=== PATIENT | male | born 1995 | race Caucasian/White ===

== ENCOUNTER 2024-11-14 12:46 | Emergency (ER) | payer SELFPAY ==
[2024-11-14 12:48] VITALS: BP 155/107
[2024-11-14 13:29] LABS: % Basophils 0.3 % (0-2); % Eosinophils 0.6 % (0-6); % Immature Granulocytes 0.5 % (0-0.5); % Lymphocytes 23.5 % (20.5-51.1); % Monocytes 6.7 % (1.7-9.3); % Neutrophils 68.4 % (42.2-75.2); Absolute Eosinophils 0.1 10^3/uL (0-0.7); Absolute Monocytes 0.6 10^3/uL (0.1-0.6); Hematocrit 48.8 % (39.0-52.0); Hemoglobin 17.2 g/dL (13.0-18.0); Mean Corp Hgb Conc. 35.2 g/dL (33.0-37.0); Mean Corpuscular Hgb 31.8 pg (27.0-31.0); Mean Corpuscular Volume 90.2 fL (80.0-94.0); Mean Platelet Volume 8.4 fL (7.4-10.4); Nucleated Red Blood Cells % 0 % (-); Platelet Count 300 10^3/uL (130-400); Red Blood Cell Count 5.41 10^6/uL (4.70-6.10); Red Cell Dist. Width 11.8 % (11.5-14.5); White Blood Cell Count 8.7 10^3/uL (4.8-10.8)
--- NOTE | 2024-11-14 13:30 | EDRN ---
Pt sat in triage area until his father arrived for personal comfort. Reunited with his father in waiting area at this time.
[2024-11-14 13:39] LABS: ALT (SGPT) 39 U/L (0-50); AST (SGOT) 36 U/L (17-59); Albumin 4.7 g/dl (3.5-5.0); Alkaline Phosphatase 85 U/L (38-126); Blood Urea Nitrogen 12 mg/dl (9-20); Calcium 9.7 mg/dl (8.4-10.2); Carbon Dioxide 22 mmol/L (22-30); Chloride 105 mmol/L (98-107); Glucose 139 mg/dl (70-99); Potassium 3.4 mmol/L (3.5-5.1); Sodium 140 mmol/L (135-145); Total Bilirubin 0.8 mg/dl (0.2-1.3); Total Protein 7.8 g/dl (6.3-8.2); eGFR > 60.00
[2024-11-14 13:51] LABS: Troponin I < 0.012 ng/ml
--- NOTE | 2024-11-14 15:17 | ED.GENMED ---
History of Present Illness
General
Chief Complaint: Anxiety
Source: patient
Exam Limitations: none
Time Seen by Provider: 11/14/24 15:16
Nursing documentation reviewed up to this point in time: agreed with
History of Present Illness
History of Present Illness:
Patient is a 28-year-old male presenting to the emergency department today with concerns of chest tightness and elevated heart rate that began while at work earlier today. Patient states around noon he was sitting at his desk when he started to
feel sudden onset heart racing. He also describes a tightness sensation across his mid chest. He denies any associated shortness of breath, lightheadedness/dizziness, diaphoresis, or back pain.
He states that he started feel very anxious about the symptoms. He then called 911 as he 'did not feel right'.
Patient reports significant history of health anxiety. He reports feeing dizzy when falling asleep on Tuesday, after a day of drinking, and has since been scared to go to sleep in case dizziness returns.
He is not seen by a therapist or on any anxiolytic medications.
Patient has no family or personal hx of cardiac disease.
Past History
Past History
ED Past Medical History: None
ED Past Surgical History: None
Review of Systems
Review of Systems
Allergies reviewed?: Yes
All Other Systems: ROS reviewed and negative except as documented in HPI and ROS
Phy Exam
Physical Exam
Physical Exam:
Vitals: Tachycardic, hypertensive on arrival
General: Patient is anxious appearing
Skin: Warm and dry, no rashes or lesions
Head: Normocephalic, atraumatic
Eyes: Sclera nonicteric. EOMs intact. No nystagmus.
Throat: Protecting airway
Neck: Normal ROM, no cervical spine tenderness, no meningismus
Cardiac: Regular rate and rhythm, no murmurs. No reproducible chest wall tenderness.
Pulm: Normal respiratory effort, no wheezes, rales, rhonchi heard on exam.
Abdomen: Abdomen soft and nontender.
Extremities: No evidence of cyanosis or edema. Palpable DP pulses bilaterally.
Neuro: AAOx3. CN II-XII intact. No focal neurologic deficits.
Psychiatric: Anxious .
Course
Orders/Labs/Results
Orders:
Orders
11/14/24 12:57
Electrocardiogram (*1) Urgent
Reason for Study: Chest Pain
EKG- Treatment ONCE
11/14/24 13:19
Complete Blood Count/With Diff Urgent
Comprehensive Metabolic Panel Urgent
Free T4 Urgent
TSH Reflex To Free T4 Urgent
Comment: ADD ON
Troponin I Urgent
11/14/24 15:43
CR Chest - 2 Views Urgent
Comment:
Reason For Exam: chest pain
11/14/24 15:48
Lorazepam [Ativan] 0.5 mg PO NOW STA
11/14/24 16:15
Electrocardiogram (*1) Urgent
Reason for Study: Chest Pain
11/14/24 17:01
Add On- LAB Urgent
Tests Added?: TSH w/ reflex to T4
Abnormal Lab Results
11/14/24
13:19
MCH 31.8 H pg
(27.0-31.0)
Potassium 3.4 L mmol/L
(3.5-5.1)
Glucose 139 H mg/dl
(70-99)
TSH (Reflex) 5.24 H uIU/ml
(0.47-4.68)
11/14/24 13:19
11/14/24 13:19
Vital Signs
Initial and Last Documented VS:
Initial Vital Signs
Temp Pulse Resp BP Pulse Ox
98.2 F 114 16 155/107 99
11/14/24 12:48 11/14/24 12:48 11/14/24 12:48 11/14/24 12:48 11/14/24 12:48
Last Documented Vital Signs
Temp Pulse Resp BP Pulse Ox
98.2 F 97 20 171/92 97
11/14/24 12:48 11/14/24 17:21 11/14/24 17:21 11/14/24 17:21 11/14/24 17:21
MDM/Problems Addressed
Differential Diagnosis Includes:
Not limited to: anxiety, panic attack, GERD, gastritis, pneumothroax, hyperthyroid, cardiac arrythmia, etc
MDM/Problems Addressed:
Patient is a 28-year-old male presenting with palpitations and chest tightness which occurred at while at work. No associated shortness of breath or exertional component to symptoms. Patient admits to being very anxious. Patient hypertensive and
tachycardic on arrival although does improve by my assessment. Physical exam as above. Patient appears very anxious with unremarkable cardio/pulmonary exam. No lower extremity edema. Patient has significant history of health related anxiety. Basic
labs were initiated in triage without significant abnormalities. EKG tachycardic without ischemic changes. Chest pain atypical - higher suspicon for panic attack vs anxiety arther than acute cardio/pulmonary process. Much lower suspicion for acute
coronary syndrome. Do not suspect pulmonary embolism. Will add on TSH and check chest x-ray. Will give PO Ativan.
Update: No evidence of clinically significant thyroid dysfunction on labwork. Chest x-ray without acute abnormalities or widened mediastinum. On reassessment � patient does still have mild chest tightness, although feeling less anxious than arrival.
He clearly became very anxious when on the phone with his mom discussing the current situation. Still overall low suspicion for acute coronary syndrome although did recommend repeat troponin given persistent symptoms which patient refused. Overall
impression is likely panic attack vs anxiety. Offered crisis services � patients declines although did accept a packet of information for outpatient resources. Feel safe for discharge home with primary care follow up. He will likely benefit from
initiating anxiolytic and starting therapy. Patient and patient�s father are comfortable with this plan. Return precautions discussed. Case discussed with attending physician.
Chronic conditions affecting care:
Anxiety
Acute Exacerbation and/or Progression of Chronic Illness:
Acute panic attack
*Radiology
Radiology exam reviewed: preliminary read by ED provider (CXR reviewed by me - no acute abnormalities) and radiology read reviewed
*Pulse Oximetry
Patient hypoxic: no
*EKG
Interpreted by ED Provider?: Yes
EKG Intrepretation Date: 11/14/24
Interpretation: abnormal
Comparison EKG: no comparison EKG present
Heart Rate: 116
Rate: tachycardiac
Rhythm: sinus
Triplett: normal axis
Interval: normal QT interval
Ischemia: no ischemia
*Purchase Analyst Interpretation
Rate: Purchase Analyst- N/A
*Critical Care Note
Total Time (30-74mins, 75-104mins- exclusive of procedures): Not Applicable
ED Attending Note
-
Portions of this chart may have been created with voice recognition software.� Occasional wrong word or��sound alike� substitutions may have occurred due to the inherent limitations of voice recognition software.
Discharge Plan
Departure
Patient Disposition: Home (Routine Discharge)
Date of Disposition: 11/14/24
Time of Disposition: 17:24
Patient with high blood pressure during this ER visit?: Yes
Discharge Problem:
Anxiety
Instructions: Anxiety, Adult (DC), Panic Disorder (DC), BLOOD PRESSURE
Prescriptions:
No Action
sulfamethoxazole-trimethoprim 1 TABLET tablet
1 tab PO BID Qty: 19 0RF
cephalexin 500 MG capsule
500 mg PO QID Qty: 39 0RF
Referrals:
UNKNOWN - PT DOES,NOT KNOW [Family Provider] -
Activity Restrictions/Additional Instructions:
Return to the emergency department with any chest pain, shortness of breath, worsening in current symptoms, or any other concerns
- Your lab work and chest x-ray showed no significant abnormalities today.
- You were given 0.5 mg of Ativan.
- As discussed�you should follow-up with your primary care for further evaluation/management and consider possibly seeing a therapist or starting outpatient medications for anxiety. You were given resources by the crisis department today.
Monitor your symptoms closely and return to the emergency department with any acute worsening/new symptoms or any other concerns
Interventions
Interventions:
*Risk Screen - Suicide Last Done: 11/14/24 12:48
*Neglect/Abuse Screening Last Done: 11/14/24 12:48
*Nursing Disposition Last Done: 11/14/24 17:39
ED-Psychological Assessment Last Done: 11/14/24 15:45
Discharge Date and Time
Discharge Date/Time: 11/14/24 17:39
Print Language: MONGOLIAN
[2024-11-14] MEDS: ATIVAN 0.5 MG PO (15:51)
[2024-11-14 17:21] VITALS: BP 171/92
[2024-11-14 18:12] LABS: TSH Reflex To Free T4 5.24 uIU/ml (0.47-4.68)
[2024-11-14 18:42] LABS: Free T4 1.38 ng/dl (0.78-2.19)
== END 2024-11-14 17:39 | disposition home or self-care (01) ==
LOC: EMR 12:46
PROVIDERS: EMERGENCY PHYSICIAN Emergency Medicine
DX: F41.9 Anxiety disorder, unspecified (principal)
CPT/HCPCS: 99283; 71046; 80053; 84439; 84443; 84484; 85025; 93005